=== PATIENT | male | born 1990 | race Caucasian/White ===

== ENCOUNTER → 2017-03-08 | Emergency (ER) | payer SELFPAY ==
[~2017-03-08] VITALS: Ht 170.2 cm; Wt 68.0 kg
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
--- NOTE | 2017-03-08 01:05 | NUR ---
IN ROOM ASSESSING PATIENT. MD ATTEMPTED TO ORDER TETANUS SHOT BUT PATIENT REFUSED. TECH DOING WOUND CARE CURRENTLY
--- NOTE | 2017-03-08 01:12 | NUR ---
D/C INSTRUCTIONS GIVEN TO PATIENT. AWAITING COMPLETION OF WOUND CARE
[2017-03-08 01:48] VITALS: BP 128/86
== END | disposition home or self-care (01) ==
LOC: ER 00:49
DX: S01.81XA Laceration without foreign body of other part of head, initial encounter (principal); W18.09XA Striking against other object with subsequent fall, initial encounter; Y93.89 Activity, other specified; Y92.89 Other specified places as the place of occurrence of the external cause; Y99.8 Other external cause status
CPT/HCPCS: 12011; 99283; A4606; A6402; J7040; Z7610

== ENCOUNTER 2017-05-29 00:27 | Emergency (ER) | payer SELFPAY | END 2017-05-29 00:39 | disposition left against medical advice (07) | LOC: ER 00:31 | DX: Z53.21 Procedure and treatment not carried out due to patient leaving prior to being seen by health care provider (principal) ==

== ENCOUNTER 2018-07-05 21:37 | Emergency (ER) | payer MEDICAID ==
[~2018-07-05] VITALS: Ht 170.2 cm; Wt 70.3 kg
[2018-07-05 21:55] VITALS: BP 129/75
== END 2018-07-05 22:40 | disposition home or self-care (01) ==
LOC: ER 21:39
DX: B34.9 Viral infection, unspecified (principal); Z98.890 Other specified postprocedural states
CPT/HCPCS: Z7502

== ENCOUNTER 2024-09-29 16:40 | Emergency (ER) | payer MEDICAID ==
[~2024-09-29] VITALS: Ht 172.7 cm; Wt 81.6 kg
[2024-09-29] MEDS ORDERED: LIDOCAINE HCL/MPF 1% 30 ML VIAL IJ ONE (17:35)
[2024-09-29] MEDS ORDERED: ACETAMINOPHEN 325 MG TABLET ONE (18:06)
[2024-09-29] MEDS: LIDOCAINE 1%-EPI 1:200,000 SDV 10 ML VIAL IJ ONE (18:08)
[2024-09-29] MEDS: ACETAMINOPHEN 325 MG TABLET PO ONE (18:08)
[2024-09-29] MEDS ORDERED: ACET-2030 PO (18:18)
[2024-09-29] MEDS ORDERED: BACI500P4 TP (18:18)
[2024-09-29 18:32] VITALS: BP 129/84; TEMP 98.6; O2SAT 96
== END 2024-09-29 18:32 | disposition home or self-care (01) ==
LOC: ER 16:44
DX: S01.511A Laceration without foreign body of lip, initial encounter (principal); Z98.890 Other specified postprocedural states; W01.0XXA Fall on same level from slipping, tripping and stumbling without subsequent striking against object, initial encounter; Y93.89 Activity, other specified; Y92.091 Bathroom in other non-institutional residence as the place of occurrence of the external cause; Y99.8 Other external cause status
CPT/HCPCS: 12011; 99282; J3490

== ENCOUNTER 2024-10-03 11:34 | Emergency (ER) | payer MEDICAID ==
[~2024-10-03] VITALS: Ht 170.2 cm; Wt 81.6 kg
[~2024-10-03 11:34] MED LIST: ACET-2030 PO; BACI500P4 TP
[2024-10-03 11:49] VITALS: BP 130/80; TEMP 97.8; O2SAT 100
== END 2024-10-03 11:50 | disposition home or self-care (01) ==
LOC: ER 11:36
DX: S01.511D Laceration without foreign body of lip, subsequent encounter (principal); Z48.02 Encounter for removal of sutures; X58.XXXD Exposure to other specified factors, subsequent encounter